=== PATIENT | female | born 1990 | race Hispanic/Latino ===

== ENCOUNTER 2020-09-09 09:52 | Outpatient (CLI) | payer SELFPAY ==
[2020-09-10 02:12] LABS: SARS-CoV-2 MS2 Positive; SARS-CoV-2 N Gene Negative; SARS-CoV-2 S Gene Negative; SARS-CoV-2 by NAA Not Detected (NotDetected); SARS-CoV-2 orf1ab Negative
== END 2020-09-09 09:53 | disposition home or self-care (01) ==
LOC: LABBT 09:52
PROVIDERS: ATTEND Family Medicine
DX: Z01.812 Encounter for preprocedural laboratory examination (principal); Z20.828 Contact with and (suspected) exposure to other viral communicable diseases
CPT/HCPCS: 87635; U0003

== ENCOUNTER 2020-09-14 10:04 | Inpatient (IN) | payer MEDICAID, OTHER, SELFPAY ==
[2020-09-14] MEDS ORDERED: Ondansetron PF 4 MG/2 ML Vial IVP PRN ×3 (10:52→15:35)
[2020-09-14] MEDS ORDERED: Famotidine/PF 20 mg/2ml Vial SLOW IVP PRN (10:52)
[2020-09-14] MEDS ORDERED: Bicitra 30 ML UDCUP PO PRN (10:52)
[2020-09-14] MEDS ORDERED: Lactated Ringer's 1,000 ML IV SCH (10:52)
[2020-09-14] MEDS ORDERED: Promethazine HCl 25 MG/ML VIAL IM PRN ×3 (10:52→15:35)
[2020-09-14] MEDS ORDERED: CEFAZOLIN 2 GM in Premix Bag 1 BAG IVPB SCH (10:52)
[2020-09-14] MEDS ORDERED: Azithromycin 500 MG in Sodium Chloride 0.9% 250 ML 250 ML IVPB SCH (10:52)
[2020-09-14] MEDS ORDERED: hydrALAZINE 20 MG/ML VIAL SLOW IVP PRN ×2 (10:52→15:35)
[2020-09-14] MEDS ORDERED: Phenylephrine 10 MG/ML VIAL ONE (11:04)
[2020-09-14] MEDS ORDERED: MORPHINE 5 MG/10 ML PF VIAL ONE (11:06)
[2020-09-14] MEDS ORDERED: Famotidine/PF 20 mg/2ml Vial ONE (11:06)
[2020-09-14 11:13] LABS: Hemoglobin 12.9 g/dL (12.0-16.0); Mean Corpuscular HGB CONC 33.5 g/dL (32.0-36.0); Mean Corpuscular Hemoglobin 28.9 pg (27.0-31.0); Mean Corpuscular Volume 86.2 fL (78.0-98.0); Mean Platelet Volume 6.4 fL (7.4-10.4); Platelet Count 207 thou/uL (130-400); RBC Distribution Width 13.7 % (11.5-14.5); Red Blood Cell (RBC) Count 4.45 mill/uL (4.20-5.40); White Blood Cell (WBC) Count 6.8 thou/uL (4.8-10.8)
[2020-09-14] MEDS ORDERED: Oxytocin 10 UNITS/ML VIAL ONE ×2 (11:16→12:35)
[2020-09-14 11:31] VITALS: BMI 32.0
[2020-09-14 12:00] LABS: Syphilis Antibody Nonreactive (Nonreactive); Syphilis Antibody Index 0.05 S/CO (<1.00 Non-Reactive)
[2020-09-14 12:02] LABS: HBSAg Index 0.15 S/CO (0-0.99); Hep B Surf Ag Non-Reactive S/CO (NonReactive)
[2020-09-14] MEDS ORDERED: Ondansetron HCl/PF 4 MG/2 ML Vial IVP PRN (12:53)
[2020-09-14] MEDS ORDERED: Meperidine HCl/PF 25 MG/ML VIAL SLOW IVP PRN (12:53)
[2020-09-14] MEDS ORDERED: Naloxone HCl 0.4 mg/ml Vial IV PRN (12:53)
[2020-09-14] MEDS ORDERED: Promethazine HCl 25 MG SUPP PR PRN (12:53)
[2020-09-14] MEDS ORDERED: L&D-Morphine 4 MG/ML VIAL SLOW IVP PRN (12:53)
[2020-09-14] MEDS ORDERED: diphenhydrAMINE 50 MG/ML VIAL IVP PRN (12:53)
[2020-09-14] MEDS ORDERED: Naloxone HCl 0.4 mg/ml Vial IVP PRN ×2 (12:53)
[2020-09-14] MEDS ORDERED: HYDROmorphone 2 MG/ML VIAL SLOW IVP PRN (12:53)
[2020-09-14] MEDS ORDERED: Communication Order-Pharmacy FS SCH (13:00)
--- NOTE | 2020-09-14 13:58 | PDOC.OPDEL ---
OB Operative/Delivery Note - Additional Findings/Plan Compilations/Other Findings: Procedure Note Date of Procedure: 09/14/20 Resident Surgeon: Blessing Daly MD PGY-3 Attending Surgeon: Placido Duran MD Procedure: Repeat low transverse caesarean section Preoperative Diagnosis: 1) Term intrauterine 2) Pregestational DM 3) Hx of C/S x2 Postoperative Diagnosis: 1) Term intrauterine , delivered 2) Pregestational DM Anesthesia: spinal Indications: The patient is a 30 year old G female at 37.2 weeks gestation who presents for a repeat scheduled delivered at 1234 Procedure in Detail: After risks, benefits, and alternatives were explained to the patient, she gave informed consent. Pre-operative antibiotics included Cefazolin 2 gram IV and Azithromycin 500mg. The patient was taken to the operating room and spinal anesthesia was initiated. She was placed in the supine position with a left tilt and prepped and draped in usual sterile fashion. A Pfannenstiel incision was made with a scalpel and carried down to the level of the fascia which was sharply nicked. The fascial cut was extended bilaterally with Tolentino scissors. The inferior and superior edges of the cut fascial edges were elevated with Shelli clamps and the underlying rectus muscles were sharply and bluntly dissected free. The recti were divided digitally and retracted manually. The peritoneum was entered bluntly and retracted manually. Adhesions to the anterior aspect of the uterus were taken down with Bovie cautery. A low transverse score was made with the scalpel and the uterus was entered in the midline with the scalpel. Clear fluid was seen. The hysterotomy was extended manually. The was noted to be vertex and was easily delivered by fundal pressure. Mouth and nares were bulb suctioned. Cord clamped and cut and grossly normal male infant was handed to waiting nurse. Cord blood was obtained. Placenta was expectantly extracted, found to be intact with 3 vessel cord and discarded. The uterus was externalized and the endometrium was curetted with a dry lap. The uterus was closed with a running locking #1 Monocryl suture. Followed by figure of eight sutures with 0-Vicryl for hemostasis. An approximately 1cm area over the right anterior portion of the uterus was noted to be bleeding where adhesion was taken down. A 0-Vicryl was used in a running locking fashion with resulting hemostasis. The abdomen was suctioned free of clots. Seprafilm was applied. The uterus was internalized and the hysterotomy was again noted to be hemostatic. Peritoneum was closed using 3-0 Vicryl. The fascia was closed with a running non-locking 0-PDS suture. The subcutaneous tissue was irrigated and bleeders were cauterized. Subcutaneous tissue was closed with 2-0 plain gut. The skin was approximated with eneida and a pressure dressing was placed. All counts were correct. The patient tolerated the procedure well and was taken to the recovery room in stable condition. Quantitative Blood Loss: 815ml Complications: None Specimens: Cord blood sent to lab for blood type Findings: Grossly normal male/female infant with Apgars of 9 and 9. Grossly normal placenta with 3 vessel cord discarded. Drains: Dinh to gravity draining clear urine
[2020-09-14] MEDS ORDERED: NS w/ Oxytocin 30 units 500 ML ONE (15:15)
[2020-09-14] MEDS ORDERED: Bisacodyl 10 MG SUPP PR PRN (15:35)
[2020-09-14] MEDS ORDERED: Lanolin Ointment 7 GM TUBE TOP PRN (15:35)
[2020-09-14] MEDS ORDERED: Meperidine HCl/PF 25 MG/ML VIAL IM PRN (15:35)
[2020-09-14] MEDS ORDERED: diphenhydrAMINE 25 MG CAP PO PRN (15:35)
[2020-09-14] MEDS ORDERED: Simethicone Chewable 80 MG TAB PO PRN (15:35)
[2020-09-14] MEDS ORDERED: NS w/ Oxytocin 30 units 500 ML IV SCH (16:00)
[2020-09-14] MEDS: Ketorolac Tromethamine 30 MG/ML VIAL IVP SCH (18:20)
[2020-09-14] MEDS ORDERED: Ketorolac Tromethamine 30 MG/ML VIAL IVP PRN (21:00)
[2020-09-15] MEDS: Ketorolac Tromethamine 30 MG/ML VIAL IVP SCH ×2 (00:07→05:52)
[2020-09-15] MEDS: Docusate Calcium (SURFAK) 240 MG CAP PO SCH ×3 (04:20→21:17)
[2020-09-15] MEDS: Ferrous Sulfate 325 MG TAB PO SCH ×3 (04:20→21:17)
[2020-09-15 07:32] LABS: Hemoglobin 9.4 g/dL (12.0-16.0); Mean Corpuscular HGB CONC 32.8 g/dL (32.0-36.0); Mean Corpuscular Hemoglobin 28.3 pg (27.0-31.0); Mean Corpuscular Volume 86.3 fL (78.0-98.0); Mean Platelet Volume 8.7 fL (7.4-10.4); Platelet Count 167 thou/uL (130-400); RBC Distribution Width 13.2 % (11.5-14.5); Red Blood Cell (RBC) Count 3.31 mill/uL (4.20-5.40); White Blood Cell (WBC) Count 6.8 thou/uL (4.8-10.8)
[2020-09-15] MEDS: Prenatal Vitamin 1 TAB PO SCH (08:59)
[2020-09-15] MEDS ORDERED: Adacel (T-DAP) 0.5 ML SYRINGE IM ONE (09:00)
[2020-09-15] MEDS: metFORMIN 500 MG TAB PO SCH ×2 (09:01→18:50)
[2020-09-15] MEDS: HYDROcodone/Acetaminophen 5/325 mg Tablet PO PRN ×3 (11:36→21:18)
[2020-09-15] MEDS: Ibuprofen 800 MG TAB PO SCH ×2 (13:59→21:18)
[2020-09-16] MEDS: HYDROcodone/Acetaminophen 5/325 mg Tablet PO PRN ×5 (01:34→20:07)
[2020-09-16] MEDS: Ibuprofen 800 MG TAB PO SCH ×3 (05:55→21:52)
[2020-09-16] MEDS: Prenatal Vitamin 1 TAB PO SCH (07:58)
[2020-09-16] MEDS: metFORMIN 500 MG TAB PO SCH ×2 (07:58→19:21)
[2020-09-16] MEDS: Ferrous Sulfate 325 MG TAB PO SCH ×2 (07:58→21:52)
[2020-09-16] MEDS: Docusate Calcium (SURFAK) 240 MG CAP PO SCH ×2 (07:59→21:53)
[2020-09-17] MEDS: HYDROcodone/Acetaminophen 5/325 mg Tablet PO PRN ×4 (02:04→15:42)
[2020-09-17] MEDS: Ibuprofen 800 MG TAB PO SCH ×2 (05:25→14:22)
[2020-09-17] MEDS: metFORMIN 500 MG TAB PO SCH (07:31)
[2020-09-17] MEDS: Docusate Calcium (SURFAK) 240 MG CAP PO SCH (07:31)
[2020-09-17] MEDS: Prenatal Vitamin 1 TAB PO SCH (07:32)
[2020-09-17 08:08] VITALS: TEMP 98.5
[2020-09-17 11:30] VITALS: BP 99/57
--- NOTE | 2020-09-21 17:42 | PQF ---
CLINICAL DOCUMENTATION CLARIFICATION FORM: Dear : Placido Duran MD Date / Time: 09/21/2020 Please exercise your independent, professional judgment in responding to the clarification form. Clinical indicators are provided on the bottom of this form for your review Please check appropriate box(es): [ ] Acute blood loss anemia [ ] Post-op anemia related to acute blood loss [ ] Anemia: [ ] Aplastic [ ] Nutritional [ ] Drug induced (specify) [ ] Hemolytic [ ] Hereditary [ ] Acquired [ ] Autoimmune [ ] Non-autoimmune [ ] Enzyme disorder [ ] Chronic Anemia: [ ] Blood loss [ ] Hemolytic [ ] Simple [ ] Due to Vitamin B12 Deficiency [ ] Other [ ] Anemia of Chronic Disease (please specify) [ ] Other diagnosis (Please specify if any) [ ] Unable to determine In addition, please specify: Present on Admission (POA): [ ] Yes [ ] No [ ] Unable to determine Physician Signature: Date/Time: For continuity of documentation, please document condition throughout progress notes and discharge summary. Thank You To be completed by CDI/Coding staff for physician review: Present Clinical Indicators - Signs / Symptoms / Labs Results and Location in Medical Record [ ] Acute bleed /anemia [x] Hypotension BP-94/50, 91/49 Vitals on 09/14, 09/16 [x] Low hemoglobin-12.9 to 9.4 and hematocrit 38.4 to 28.6 Laboratory from 09/14, 09/15 [x] Estimated blood loss 815 ml L&D note on 09/14 [ ] Melena/Hematochezia [ ] Tachycardia Present Risk Factors Results and Location in Medical Record [x] Repeat low transverse section L&D note on 09/14 [ ] Fracture of long bones [ ] Neoplasm [ ] Malnutrition Present Treatments Results and Location in Medical Record [x] Ferrous sulfate 325mg New home medication from 09/17 [ ] Blood stimulating drugs (Procrit, Iron) CDS/Hand Alterations Tailor Signature: AAS Phone #: Date/Time: 09/21/2020 This is a permanent part of the Medical Record [facility]
== END 2020-09-17 15:50 | disposition home or self-care (01) | DRG 788 ==
LOC: L&D 10:04 → 3SW 15:56
PROVIDERS: ADMIT Family Medicine; ATTEND Family Medicine
PROC: 10D00Z1 Extraction of Products of Conception, Low, Open Approach (ICD-10-PCS; principal; 2020-09-14)
DX: O34.219 Maternal care for unspecified type scar from previous cesarean delivery (principal); Z3A.37 37 weeks gestation of pregnancy; Z37.0 Single live birth; O24.420 Gestational diabetes mellitus in childbirth, diet controlled
CPT/HCPCS: 36415; 36416; 51702; 85027; 86780; 86850; 86900; 86901; 87340; J1885; J2274; J2370; J2590; S0028